=== PATIENT | male | born 1955 | race Hispanic/Latino ===

== ENCOUNTER → 2022-01-31 | Outpatient (CLI) | payer MEDICARE | END | disposition home or self-care (01) | LOC: RAH 11:11 | PROVIDERS: ATTEND Family Medicine | DX: M16.0 Bilateral primary osteoarthritis of hip (principal); M25.551 Pain in right hip; R10.31 Right lower quadrant pain; M16.11 Unilateral primary osteoarthritis, right hip | CPT/HCPCS: 73721 ==

== ENCOUNTER 2024-03-20 22:32 | Emergency (ER) | payer MEDICARE ==
[~2024-03-20] VITALS: Ht 188 cm; Wt 101.6 kg
[2024-03-21] MEDS ORDERED: hydroMORPHone 0.5 MG SYG (0.5MG/0.5ML) IVP ONE
--- NOTE | 2024-03-21 | ERN ---
ED Note History of Present Illness Stated Complaint: C/O PAIN TO LEFT LOWER BACK; Chief Complaint: Back Pain-No Injury Time Seen by MD: 23:30 Dictation: This is a 69-year-old male who presented to the emergency room complaining of lower back pain for about a month and the pain is so worse that he is unable to get up and walk. He denied any bladder or bowel incontinence. House indicated that patient picked up heavy bird feed bags 40 lb each after which he started developing worsening back pain. He saw his primary care physician who did x- rays of the back. No bladder or bowel incontinence. He stated that even to move the pain is excruciating and at times radiating down his thigh No history of any hematuria fever. Temperature 97.7 pulse 69 respirations 20 blood pressure 111/67 with a pulse oximetry of 97% on room air Chronic medical problems include hypertension and hypercholesterolemia Allergies: Coded Allergies: Penicillins (Unverified Allergy, SYNCOPE, 02/18/13) Home Meds Active Scripts Ketorolac Tromethamine (Toradol) 10 Mg Tab, 10 MG PO QID for pain for 5 Days, #20 TAB 0 Refills Prov:YANA LUNDY MD 03/21/24 Oxycodone HCl/Acetaminophen (Percocet 7.5-325 mg Tablet) 7.5 Mg-325 Mg Tablet, 1 TAB PO TID PRN for severe back pain for 5 Days, #20 TAB 0 Refills Prov:YANA LUNDY MD 03/21/24 Cyclobenzaprine HCl (Cyclobenzaprine HCl) 10 Mg Tablet, 1 TAB PO TID for muscle spasms for 10 Days, #30 TAB 0 Refills Prov:YANA LUNDY MD 03/21/24 Prednisone (Prednisone) 20 Mg Tablet, 1 TAB PO AD for 6 Days, #14 TAB 0 Refills TAKE 1 TAB BY MOUTH THREE TIMES PER DAY X3 DAYS, THEN TAKE 1 TAB BY MOUTH TWICE A DAY X2 DAYS, THEN TAKE 1 TAB BY MOUTH ONCE A DAY X1 DAY. Prov:YANA LUNDY MD 03/21/24 Past Medical History Past Medical History: High Cholesterol, Hypertension Surgical History: Unknown Family History: Negative Social History: Negative RN Note Reviewed/Agreed w/PFSH: Yes Review of System Dictation Constitutional: Negative for fever,chills, and weight loss Eyes: Negative for injury, pain,redness, and discharge ENT: Negative for injury,pain or swelling Cardiovascular: Negative for chest pain, palpitations, and edema Respiratory: Negative for shortness of breath, cough, and wheezing, Abdomen/GI: Negative for abdominal pain, nausea, vomiting, diarrhea, and constipation Back: Negative for injury and complained of pain : Negative for injury, bleeding and discharge MS/Extremity: Negative for injury and deformity Skin: Negative for rash, and discoloration Neuro: Negative for headache, weakness, numbness, tingling, and seizure Psych: Negative for suicide ideation, homicidal ideation, and hallucinations Initial Vital Sign VS Vital Signs Date Time Temp Pulse Resp B/P (MAP) Pulse Ox O2 Delivery O2 Flow Rate FiO2 03/20/24 22:37 97.7 69 20 111/67 96 Room Air 03/20/24 23:19 0 21 Physical Exam Dictation General: awake, alert, NAD Head/Face: Normocephalic, atraumatic Eyes: PERRL, EOMI, vision at baseline ENT: oral cavity clear, TMs clear, no signs of infection Neck: Trachea midline, supple, no nuchal rigidity Cardiovascular: RRR, normal S1/S2, No MRGs, no JVD Respiratory: CTAB, no respiratory distress, No rales or wheezes Abdomen: Soft, non-tender, non-distended, normal bowel sounds, no guarding or rebound. Skin: Warm, dry, normal turgor, no rash MS/Extremity: Pulses equal, no cyanosis, neurovascular intact, FROM Neuro: COAx4, GCS 15, strength 5/5, CN 2-12 intact, normal cerebellar exam, normal gait, Psych: Normal behavior, mood, and affect normal Extremities-trace edema without any palpable cords, Homans sign is negative Results (Laboratory/Radiology) Laboratory/Radiology Laboratory Tests Test 03/21/24 00:03 Urine Color YELLOW (YELLOW) Urine Appearance CLEAR (CLEAR) Urine pH 5.5 (5.0-8.0) Urine Specific [place] 1.025 (1.001-1.031) Urine Protein 20 mg/dL (NEGATIVE) H Urine Glucose (UA) NEGATIVE mg/dL (NEGATIVE) Urine Ketones 5 mg/dL (NEGATIVE) H Urine Occult Blood NEGATIVE (NEGATIVE) Urine Nitrate NEGATIVE (NEGATIVE) Urine Bilirubin NEGATIVE mg/dL (NEGATIVE) Urine Urobilinogen 0.2 mg/dL (0.2-1.0) Urine Leukocyte Esterase NEGATIVE Hailee/uL Urine RBC 0-1 /HPF (0-1) Urine WBC 2-5 /HPF (0-1) H Urine Squamous Epithelial Cells RARE /HPF (0-2) Urine Bacteria None /HPF (None Seen) Urine Hyaline Casts 6-10 /LPF (0-1 /LPF) H Labs Reviewed?: Yes CT Scan Comment: PATIENT: LEENA WESLEY MR#: [id number] : 1955 SEX: M AGE: 69 LOCATION: [facility] ORDER STATUS: [facility] REPORT#: [id number] SERVICE REASON: ? herniated disc acute lumbar radiculopathy? ORDERING PHYSICIAN: YANA LUNDY MD PROCEDURE: L SPIN WO - CT LUMBAR SPINE W/O CONTRAST CT LUMBAR SPINE W/O CONTRAST HISTORY: Acute lumbar radiculopathy COMPARISON: None TECHNIQUE: Multiple sequential axial images of the lumbar spine were obtained including post processing sagittal and coronal reconstruction images. Patient was not given contrast through intravenous route. FINDINGS: There are degenerative changes of the lumbar spine spondylosis. Disc space narrowing is seen at the L5-S1 level. Annular disc bulges with disc protrusion/herniations are seen at L2-3, L3-4, L4-5 and L5-S1 levels causing central canal narrowing and bilateral neural foraminal stenosis. This is worse at L4-5 level. There is no loss of vertebral height. Evaluation for disc and cord pathology is limited with CT study. No evidence of fracture or dislocation is seen. IMPRESSION: 1. No fracture is seen. 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 CT was performed with one or more following dose reduction techniques: automated exposure control, adjustment of the mA and kv according to patient's size, or use of a iterative reconstruction technique. DICTATED BY: HAYDEN PAYNE MD DATE: 03/21/24117 ELECTRONICALLY SIGNED BY: HAYDEN PAYNE MD DATE: 03/21/24122 ED Course ED Course Orders Procedure Category Date Status Time Urinalysis Profile LAB 03/20/24 Complete 23:52 Hydromorphone 0.5mg PHA 03/21/24 Complete Syg (Dilaudid 0.5mg 00:00 Hydromorphone 1 Mg PHA 03/21/24 Complete Inj (Dilaudid 1mg Inj 00:30 Methylprednisolone PHA 03/21/24 Complete Succ 125mg (Solu-Medr 00:30 Cyclobenzaprine Hcl PHA 03/21/24 Complete (Cyclobenzaprine Hcl 00:30 Ct Lumbar Spine W/O CT 03/21/24 Resulted Contrast 00:27 Ketorolac PHA 03/21/24 Complete Tromethamine 30mg/Ml 02:00 Current Medications Medications (Trade) Dose Ordered Sig/Prudence Route PRN Reason Start Time Stop Time Status Last Admin Dose Admin Cyclobenzaprine HCl (Cyclobenzaprine HCl) 10 mg ONCE ONCE PO 03/21/24 00:30 03/21/24 00:31 DC 03/21/24 00:39 Hydromorphone HCl (DiLAUDid 0.5MG INJ) 0.5 mg ONCE ONCE IVP 03/21/24 00:00 03/21/24 00:14 DC Hydromorphone HCl (DiLAUDid 1MG INJ) 1 mg ONCE ONCE IVP 03/21/24 00:30 03/21/24 00:31 DC 03/21/24 00:39 Ketorolac Tromethamine (toRADol) 30 mg ONCE ONCE IVP 03/21/24 02:00 03/21/24 02:01 DC 03/21/24 02:05 Methylprednisolone Sodium Succinate (Solu-medROL 125MG) 80 mg ONCE ONCE IVP 03/21/24 00:30 03/21/24 00:31 DC 03/21/24 00:39 Vital Signs Date Time Temp Pulse Resp B/P (MAP) Pulse Ox O2 Delivery O2 Flow Rate FiO2 03/21/24 02:27 97.5 68 16 117/66 98 Room Air* 0 21 03/20/24 23:19 97.9 61 17 106/64 98 Room Air* 0 21 03/20/24 22:37 97.7 69 20 111/67 96 Room Air We will perform diagnostic labs, advanced imaging and administer medications according to the patient's complaint. Once the results are available, will review and personally interpreted the labs to rule out any acute life-th reatening emergency the trach require immediate intervention and treatment. I will then re-evaluate the patient after treatment and diagnostic exams have return to determine whether the patient requires any further testing, can safely be discharged home or need further admission to hospital for additional treatment and evaluation. REVIEWED URINALYSIS WAS ESSENTIALLY UNREMARKABLE FOR ANY HEMATURIA OR INFECTION CT SCAN OF THE LUMBAR SPINE REVEALED MULTIPLE LEVELS OF INTERVERTEBRAL DISC HERNIATIONS AND ALSO SPINAL CANAL STENOSIS AND FORAMINAL STENOSIS. I went over the results and updated the patient and spouse and answered all their questions. His pain is slightly better but continues to have pain we will give a trial of IV Toradol and assess the response. Patient feels significantly improved since admission and will be discharged to home Medical Decision Making MDM MDM: Differential diagnosis: Compression fracture, herniated discs, acute lumbar radiculopathy, spinal stenosis, degenerative disc disease Rationale: Tests considered and ordered secondary to shared decision making inc lude: Previous outside records reviewed: Old ER visits. Risk of complication and/or morbidity or mortality of patient management: None Medications-Per medication reconciliation Need for hospitalization: Patient does not meet criteria for hospitalization. Need for emergency major/minor surgery: No There are no social concerns with this patient. Prescription drug management Prescriptions will include symptomatic care Patient's prior external medical records from other ER visits were reviewed by me as indicated. Prior testing and results from previous visits were reviewed. Prior tests were taken into account with medical decision making and resource utilization, independent historian/historians were used to obtain complete medical history. I independently interpreted the test that were performed, results were reviewed by me and considered findings on radiology if ordered. Medical management and examination interpretation discussions were had by me with other qualified healthcare professionals as indicated for the patient's care. Problem List Problem List: (1) Herniation of multiple intervertebral discs (2) Acute lumbar radiculopathy DX & DISP Disposition: Discharge Departure Impression: Primary Impression: Acute lumbar radiculopathy Additional Impression: Herniation of multiple intervertebral discs Condition: Stable Scripts Ketorolac Tromethamine (Toradol) 10 Mg Tab 10 MG PO QID for pain for 5 Days, #20 TAB 0 Refills Prov: YANA LUNDY MD 03/21/24 Oxycodone HCl/Acetaminophen (Percocet 7.5-325 mg Tablet) 7.5 Mg-325 Mg Tablet 1 TAB PO TID PRN for severe back pain for 5 Days, #20 TAB 0 Refills Prov: YANA LUNDY MD 03/21/24 Cyclobenzaprine HCl (Cyclobenzaprine HCl) 10 Mg Tablet 1 TAB PO TID for muscle spasms for 10 Days, #30 TAB 0 Refills Prov: YANA LUNDY MD 03/21/24 Prednisone (Prednisone) 20 Mg Tablet 1 TAB PO AD for 6 Days, #14 TAB 0 Refills TAKE 1 TAB BY MOUTH THREE TIMES PER DAY X3 DAYS, THEN TAKE 1 TAB BY MOUTH TWICE A DAY X2 DAYS, THEN TAKE 1 TAB BY MOUTH ONCE A DAY X1 DAY. Prov: YANA LUNDY MD 03/21/24 Additional Instructions: Patient and the caregiver have been informed of all the diagnostic tests and the imaging conducted during the today's visit to the emergency room and has verbalized understanding of the results I have personally reviewed and interpreted all diagnostic exams performed here in the ER today as well as the vital signs documented by the nursing staff. The patient is now being discharged to home and should follow up with the primary care physician or the specialist as directed by the ER staff. Follow-up with primary care provider in 1 to 2 days. Take medications as directed here in the emergency room. Okay to continue home medications unless otherwise discussed during your visit in the emergency room today. Return to your nearest emergency room if symptoms worsen or if there is no improvement. Call 911 if you need immediate assistance. Take Tylenol or Motrin [id number] as needed and if no contraindications are present. Increase oral hydration. A wound culture or urine culture was ordered here in the emergency room department please follow-up with primary care provider and advise them to get repeat ports from our facility. If you had any Ken wrap/splints that were applied here, please do not remove them until you see your primary care or specialty. BACK PRECAUTIONS NOT LIFTING ANY WEIGHTS TRIAL OF TORADOL FOR A FEW DAYS AND IF PAIN IS NOT RELIEVED WITH TORADOL, HE SHOULD TAKE A PERCOCET. TOPICAL PAIN MEDICATION REFERRAL TO SPINE SURGERY FOR EVALUATION Referrals: OPAL QUINN MD (PCP) DUSTIN DINERO MD, ANURADHA R MD Mar 21, 2024 00:00
[2024-03-21 00:23] LABS: APPEARANCE,URINE CLEAR (CLEAR); BILIRUBIN,URINE NEGATIVE (NEGATIVE); COLOR,URINE YELLOW (YELLOW); GLUCOSE, URINE (UA) NEGATIVE (NEGATIVE); KETONES,URINE 5 mg/dL (NEGATIVE); LEUKOCYTE ESTERASE ,URINE NEGATIVE Leu/uL (NEGATIVE); NITRATE,URINE NEGATIVE (NEGATIVE); OCCULT BLOOD,URINE NEGATIVE (NEGATIVE); PH,URINE 5.5 (5.0-8.0); PROTEIN,URINE 20 mg/dL (NEGATIVE); UROBILINOGEN,URINE 0.2 mg/dL (0.2-1.0)
[2024-03-21 00:30] LABS: ADD UA MICROSCOPIC YES
[2024-03-21 00:31] LABS: MUCUS,URINE RARE LPF (None Seen); RBC,URINE 0-1 /HPF (0-1); SQUAMOUS EPITHELIAL CELL,UR RARE /HPF (0-2)
[2024-03-21] MEDS: hydroMORPHone 1 MG INJ IVP ONE (00:39)
[2024-03-21] MEDS: Solu-medROL 125MG VIAL IVP ONE (00:39)
[2024-03-21] MEDS: CYCLOBENZAPRINE HCL 10 MG TABLET PO ONE (00:39)
--- NOTE | 2024-03-21 01:23 | HMCIMG ---
CT LUMBAR SPINE W/O CONTRAST HISTORY: Acute lumbar radiculopathy COMPARISON: None TECHNIQUE: Multiple sequential axial images of the lumbar spine were obtained including post processing sagittal and coronal reconstruction images. Patient was not given contrast through intravenous route. FINDINGS: There are degenerative changes of the lumbar spine spondylosis. Disc space narrowing is seen at the L5-S1 level. Annular disc bulges with disc protrusion/herniations are seen at L2-3, L3-4, L4-5 and L5-S1 levels causing central canal narrowing and bilateral neural foraminal stenosis. This is worse at L4-5 level. There is no loss of vertebral height. Evaluation for disc and cord pathology is limited with CT study. No evidence of fracture or dislocation is seen. IMPRESSION: 1. No fracture is seen. 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 CT was performed with one or more following dose reduction techniques: automated exposure control, adjustment of the mA and kv according to patient's size, or use of a iterative reconstruction technique.
[2024-03-21] MEDS ORDERED: OXYC-42 PO (01:57)
[2024-03-21] MEDS ORDERED: PRED20TA3 PO (01:57)
[2024-03-21] MEDS ORDERED: CYCL-309 PO (01:57)
[2024-03-21] MEDS ORDERED: KETO10 PO (01:57)
[2024-03-21] MEDS: ketOROlac 30MG VIAL (30MG/ML) IVP ONE (02:05)
[2024-03-21 02:27] VITALS: BP 117/66; PULSE 68; RESP 16; TEMP 97.6; O2SAT 98
== END 2024-03-21 03:05 | disposition home or self-care (01) ==
LOC: EDH 22:32
DX: M54.16 Radiculopathy, lumbar region (principal); K46.9 Unspecified abdominal hernia without obstruction or gangrene; E78.00 Pure hypercholesterolemia, unspecified; I10 Essential (primary) hypertension; Z88.0 Allergy status to penicillin
CPT/HCPCS: 99285; 81001; 96374; 72131; 96375; J1171; J2919; J1885